=== PATIENT | female | born 1950 | race Caucasian/White ===

== ENCOUNTER 2018-03-04 22:55 | Emergency (ER) | payer SELFPAY ==
[2018-03-04 23:05] VITALS: BP 147/77
[2018-03-04] MEDS ORDERED: Tetan/Diph/Pertus SYR(Tdap)* 0.5 ML SYR(BOOSTRIX) use SYR IM ONE (23:51)
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
== END 2018-03-05 00:03 | disposition home or self-care (01) ==
LOC: ED 22:55
DX: S01.01XA Laceration without foreign body of scalp, initial encounter (principal); W22.8XXA Striking against or struck by other objects, initial encounter; Y92.89 Other specified places as the place of occurrence of the external cause
CPT/HCPCS: 12001; 90471; 90715; 99281